=== PATIENT | female | born 1955 | race Caucasian/White ===

== ENCOUNTER → 2020-07-31 | Outpatient (CLI) | payer BC, OTHER ==
[~2020-07-31] MED LIST: LOSA25TA25 PO; MIRT-34 PO; antidepressant PO
[2020-07-31 16:35] LABS: BASOPHILS % (AUTO) 1 % (0-1); EOSINOPHILS % (AUTO) 1 % (1-7); LYMPHOCYTES % (AUTO) 25 % (22-44); MEAN CORPUSCULAR HEMOGLOBIN 21.6 pg (27.0-34.8); MEAN CORPUSCULAR HGB CONC 31.7 g/dL (32.4-35.8); MEAN PLATELET VOLUME 10.2 fL (7.4-10.4); MONOCYTES % (AUTO) 6 % (2-9); NEUTROPHILS % (AUTO) 67 % (42-75); PLATELET COUNT 207 x10^3/uL (130-400); RED BLOOD COUNT 4.93 x10^6/uL (3.82-5.3); RED CELL DISTRIBUTION WIDTH 16.9 % (9.6-15.2)
[2020-07-31 16:42] LABS: MD MORPH REVIEW ONLY
[2020-07-31 16:45] LABS: ALBUMIN 4.2 g/dL (3.4-5.0); ANION GAP 2 mmol/L (5-15); CALCIUM 8.8 mg/dL (8.5-10.1); CHLORIDE 106 mmol/L (98-107)
[2020-07-31 16:49] LABS: ALANINE AMINOTRANSFERASE 24 U/L (12-78); ALKALINE PHOSPHATASE 92 U/L (45-117); BILIRUBIN,TOTAL 0.8 mg/dL (0.2-1.0); CREATININE 0.83 mg/dL (0.55-1.02); TOTAL PROTEIN 7.1 g/dL (6.4-8.2)
[2020-07-31 18:06] LABS: HYPOCHROMIA 2+; MICROCYTOSIS 2+; OVALOCYTES 1+; TARGET CELLS 1+; TEAR DROPS 1+
[2020-07-31 18:08] LABS: <PLATELET ESTIMATE> ADEQUATE; <PLT MORPHOLOGY> NORMAL PLT MORPH; POLYCHROMASIA 1+
== END | disposition home or self-care (01) ==
LOC: STAR 15:18
PROVIDERS: ATTEND Internal Medicine
DX: Z01.812 Encounter for preprocedural laboratory examination (principal); Z20.828 Contact with and (suspected) exposure to other viral communicable diseases; I49.8 Other specified cardiac arrhythmias; R94.31 Abnormal electrocardiogram [ECG] [EKG]
CPT/HCPCS: 80053; 85025; 87635; 93005

== ENCOUNTER 2020-08-05 05:13 | Day surgery (SDC) | payer BC, OTHER ==
[~2020-08-05] VITALS: Ht 168.9 cm; Wt 49.1 kg
[2020-08-05] MEDS ORDERED: CHLORHEXIDINE 15 ML UDC MM ONE (06:30)
[2020-08-05] MEDS ORDERED: LACTATED RINGERS 1,000 ML IV SCH (06:30)
[2020-08-05 06:31] VITALS: BP 138/85
[2020-08-05] MEDS ORDERED: BUSP10TA PO (06:35)
[2020-08-05] MEDS ORDERED: FLUO20CA23 PO (06:35)
[2020-08-05] MEDS ORDERED: CHLORHEXIDINE 15 ML UDC ONE (06:37)
[2020-08-05] MEDS ORDERED: MIDAZOLAM 1 MG/ML, 2ML ONE (07:09)
[2020-08-05] MEDS ORDERED: FENTANYL PF 100 MCG/2ML ONE (07:09)
[2020-08-05] MEDS ORDERED: FENTANYL PF 100 MCG/2ML IV PRN (07:30)
[2020-08-05] MEDS ORDERED: PROPOFOL 10 MG/ML, 50ML ONE (08:03)
== END 2020-08-05 10:00 | disposition home or self-care (01) ==
LOC: OR 05:13
PROVIDERS: ATTEND Internal Medicine Geriatric Medicine
DX: K31.89 Other diseases of stomach and duodenum (principal); F41.9 Anxiety disorder, unspecified; I10 Essential (primary) hypertension; F12.10 Cannabis abuse, uncomplicated; Z91.013 Allergy to seafood
CPT/HCPCS: 43259; J2250; J2704; J3010; J7120